=== PATIENT | male | born 1965 | race Caucasian/White ===

== ENCOUNTER 2023-10-25 09:21 | Day surgery (SDC) | payer MEDICAID ==
[~2023-10-25] VITALS: Ht 165.1 cm; Wt 73.5 kg
[2023-10-25 11:45] VITALS: O2SAT 98
[2023-10-25] MEDS ORDERED: MEPERIDINE 100 MG INJ. 100 MG/ML VIAL ONE (11:46)
[2023-10-25] MEDS ORDERED: MIDAZOLAM HCL 5 MG/5 ML VIAL ONE (11:47)
[2023-10-25] MEDS ORDERED: BENZOCAINE 20% 0.5mL UD SPRAY MM ONE (14:08)
[2023-10-25 14:52] VITALS: BP_SYST 119; PULSE 97; RESP 17
== END 2023-10-25 13:03 | disposition home or self-care (01) ==
LOC: SDS 09:21 → SMU 09:22 → SDS 13:03
PROVIDERS: ATTEND Internal Medicine
DX: Z12.11 Encounter for screening for malignant neoplasm of colon (principal); K29.50 Unspecified chronic gastritis without bleeding; K31.89 Other diseases of stomach and duodenum; K64.8 Other hemorrhoids; K21.9 Gastro-esophageal reflux disease without esophagitis; K44.9 Diaphragmatic hernia without obstruction or gangrene; E78.5 Hyperlipidemia, unspecified; Z90.89 Acquired absence of other organs; Z79.899 Other long term (current) drug therapy
CPT/HCPCS: 45378; 43239; 99152; 88305; 88312; 88313; G0378; J2250; J2175